=== PATIENT | female | born 1995 | race Caucasian/White ===

== ENCOUNTER 2022-01-31 10:25 | Emergency (ER) | payer MEDICAID ==
[~2022-01-31] VITALS: Ht 144.8 cm; Wt 89.4 kg
[2022-01-31 10:40] VITALS: BP 139/81
[2022-01-31] MEDS ORDERED: KETOROLAC 30 MG/ML VIAL IVP ONE (11:05)
[2022-01-31] MEDS ORDERED: NACL 0.9% 1,000 ML IV SCH (11:05)
[2022-01-31 11:35] LABS: APPEARANCE,URINE SL CLOUDY (CLEAR); BILIRUBIN,URINE NEGATIVE (NEGATIVE); BLOOD, URINE 2+ (NEGATIVE); COLOR,URINE YELLOW (YELLOW); LEUKOCYTE ESTERASE ,URINE NEGATIVE (NEGATIVE); NITRITE, URINE NEGATIVE (NEGATIVE); UGLUCOSE NEGATIVE (NEGATIVE)
[2022-01-31 11:51] LABS: WBC,URINE 0-5 /HPF (0-5)
[2022-01-31 11:52] LABS: OTHER CASTS, URINE None Seen /LPF (None Seen)
[2022-01-31 12:05] LABS: BASOPHILS # (AUTO) 0.1 K/uL (0.00-0.22); BASOPHILS % (AUTO) 0.9 % (0.0-2.0); EOSINOPHILS # (AUTO) 0.2 K/uL (0-0.4); EOSINOPHILS % (AUTO) 2.6 % (0.0-4.0); HEMATOCRIT 42.4 % (36-48); HEMOGLOBIN 14.6 g/dL (12.0-16.0); LYMPHOCYTES # (AUTO) 2.4 K/uL (2.5-16.5); MEAN CORPUSCULAR HEMOGLOBIN 29 pg (27-31); MEAN CORPUSCULAR HGB CONC 35 g/dL (33-37); MEAN CORPUSCULAR VOLUME 82.7 fL (80-94); MONOCYTES # (AUTO) 0.6 K/uL (0.8-1.0); MONOCYTES % (AUTO) 8.9 % (1.7-9.3); NEUTROPHILS # (AUTO) 3.7 K/uL (1.8-7.7); NEUTROPHILS % (AUTO) 53.6 % (42.2-75.2); PLATELET COUNT (AUTO) 320 K/uL (140-450); RED BLOOD CELL COUNT(AUTO) 5.12 MIL/uL (4.20-5.40); RED CELL DISTRIBUTION WIDTH 13.2 % (11.6-13.7)
[2022-01-31] MEDS ORDERED: KETOROLAC 30 MG/ML VIAL ONE (12:09)
[2022-01-31 12:20] LABS: ALBUMIN 3.9 g/dL (3.4-5.0); ANION GAP 12.4 (8-16); CARBON DIOXIDE 29.9 mmol/L (21-32); CREATININE 0.7 mg/dL (0.6-1.3); POTASSIUM 3.3 mmol/L (3.5-5.1); TOTAL BILIRUBIN 1.2 mg/dL (0.0-1.0)
[2022-01-31] MEDS ORDERED: ONDANSETRON 4 MG/2 ML VIAL IVP ONE (12:20)
[2022-01-31] MEDS ORDERED: POLY17PD72 PO (12:38)
[2022-01-31] MEDS ORDERED: BEN10 PO (12:48)
[2022-01-31] MEDS ORDERED: DOCU-299 PO (12:48)
[2022-01-31] MEDS ORDERED: POTASSIUM CHLORIDE 10 MEQ TABER PO ONE (12:50)
[2022-01-31 13:43] VITALS: BP 121/85
== END 2022-01-31 13:43 | disposition home or self-care (01) ==
LOC: MED 10:25
DX: K59.00 Constipation, unspecified (principal); R16.0 Hepatomegaly, not elsewhere classified; I10 Essential (primary) hypertension; E87.6 Hypokalemia; Z98.51 Tubal ligation status
CPT/HCPCS: 36415; 74176; 80053; 81001; 81025; 82150; 83690; 85025; 96361; 96374; 96375; 99284; J1885; J2405; J7030